=== PATIENT | female | born 1990 | race Caucasian/White ===

== ENCOUNTER 2017-02-28 18:01 | Emergency (ER) | payer OTHER ==
[~2017-02-28] VITALS: Ht 154.9 cm; Wt 56.2 kg
[2017-02-28 19:36] VITALS: BP 99/50
== END 2017-02-28 19:36 | disposition home or self-care (01) ==
LOC: ED 18:01
DX: K52.9 Noninfective gastroenteritis and colitis, unspecified (principal)
CPT/HCPCS: Q0162